=== PATIENT | female | born 1980 | race Caucasian/White ===

== ENCOUNTER 2016-05-06 06:31 | Emergency (ER) | payer MEDICAID ==
[~2016-05-06] VITALS: Ht 160 cm; Wt 100.3 kg
[~2016-05-06 06:31] MED LIST: BUSP30TA PO; CETI10CH CHEW; CLON0.1T PO; DELS30LI3 PO; FLUT1SPR20; GABA600T PO; IBUP800T23 PO; MELA1TAB18 PO; OXYC1TAB36 PO; ROBA750T PO; TRAZ100T4 PO; flonase
[2016-05-06 06:36] VITALS: BP 124/81; PULSE 86; RESP 20; TEMP 98.7; O2SAT 97
[2016-05-06] MEDS ORDERED: LORA-361 PO ×4 (07:44→07:50)
[2016-05-06] MEDS ORDERED: ZITHTAB PO (07:44)
--- NOTE | 2016-05-06 07:45 | PD ---
HPI Chief Complaint: Cold / Flu Symptoms Time Seen by Provider: 07:38 Travel History International Travel<30 days: No Contact w/Intl Traveler<30days: No Traveled to known affect area: No History of Present Illness HPI 35-year-old female with history of smoking, presents to the ER with 3 weeks history of intermittent coughing, cold symptoms, sore throat, itchy eyes, and nausea. She denies any vomiting, abdominal pain, fevers, or any other symptoms. She states that she feels like the symptoms just won't go away. Modifying Factors: None Associated Signs & Symptoms: Cough, cold symptoms, sore throat, itchy eyes, nausea for 3 weeks Risk Factors: Smoking PFSH Past Medical History Arthritis: Yes (ARMS BILATERAL) Asthma: Yes Autoimmune Disease: No Blood Disorders: No Bipolar Disorder: Yes Anxiety: Yes Depression: Yes Heart Rhythm Problems: No Cancer: No Cardiovascular Problems: No High Cholesterol: No Chemotherapy: No Chest Pain: No Congestive Heart Failure: No COPD: No Cerebrovascular Accident: No Diabetes: No Diminished Hearing: No Endocrine: No Gastrointestinal Disorders: Yes GERD: No Glaucoma: No Genitourinary: Yes Headaches: Yes (REGULARLY) Hepatitis: No Hiatal Hernia: No Heparin Induced Thrombocytopen: No Hypertension: No Immune Disorder: No Implanted Vascular Access Dvce: No Kidney Stones: Yes Musculoskeletal: No Neurologic: No Psychiatric: Yes (BIPOLOR ) Reproductive: Yes (OVARIAN CYSTS ) Respiratory: Yes Resp. Syncytial Virus (RSV): No Integumentary: Yes (SHINGLES/TUMOR EYE) Immunizations Current: Yes Migraines: Yes Myocardial Infarction: No Pneumonia: Yes Radiation Therapy: No Renal Failure: No Schizophrenia: Yes (PARNOID PER HX- ABLE TO IGNORE VOICES) Seizures: No Shingles: Yes Sickle Cell Disease: No Sleep Apnea: No Thyroid Disease: No Ulcer: No ?: Not LMP: 03/29/16 : 5 Para: 2 Miscarriage: 1 : 2 Ovarian Cysts: Yes Dilation and Curettage (D&C): Yes Tubal Ligation: Yes Past Surgical History Abdominal Surgery: No AICD: No Arteriovenous Shunt: No Cardiac Surgery: No Section: Yes (x 1) Cholecystectomy: Yes Ear Surgery: No Endocrine Surgery: No Eye Surgery: No Genitourinary Surgery: No Gynecologic Surgery: Yes Insulin Pump: No Joint Replacement: No Neurologic Surgery: No Oral Surgery: No Pacemaker: No Thoracic Surgery: No Other Surgery: Yes (LAPAROSCOPY) Social History Alcohol Use: Yes (rare) Tobacco Use: Yes (1 -2 CIGS A DAY) Substance Use: No (denies) Allergies-Medications (Allergen,Severity, Reaction): Coded Allergies: No Known Allergies (Verified , 05/06/16) Reported Meds & Prescriptions Reported Meds & Active Scripts Active Robaxin (Methocarbamol) 750 Mg Tab 750 Mg PO QID Clonidine (Clonidine HCl) 0.1 Mg Tab 0.1 Mg PO BID Reported Melatonin 10 Mg Tab 15 Mg PO HS PRN Eq Allergy Relief (Fluticasone Propionate (Nasal)) 50 Mcg/Act Spr 1 [place] NA DAILY Trazodone (Trazodone HCl) 100 Mg Tab 300 Mg PO HS Buspirone (Buspirone HCl) 30 Mg Tab 30 Mg PO QID Gabapentin 600 Mg Tab 600 Mg PO TID Review of Systems Except as stated in HPI: all other systems reviewed are Neg Physical Exam Narrative GENERAL: Well-nourished, well-developed young white female patient in no acute distress. SKIN: Warm and dry. HEAD: Normocephalic. EYES: No scleral icterus. No injection or drainage. ENT: Mucosa pink and moist. No erythema or exudates. No uvular edema. No uvular , palatal, or tonsillar deviation. Airway patent. NECK: Supple, trachea midline. CARDIOVASCULAR: Regular rate and rhythm without murmurs, gallops, or rubs. RESPIRATORY: Breath sounds equal bilaterally. No accessory muscle use. GASTROINTESTINAL: Abdomen soft, non-tender, nondistended. MUSCULOSKELETAL: No cyanosis, or edema. BACK: Nontender without obvious deformity. No CVA tenderness. Data Data Last Documented VS Vital Signs Date Time Temp Pulse Resp B/P Pulse Ox O2 Delivery O2 Flow Rate FiO2 05/06/16 07:12 86 18 97 Room Air 05/06/16 06:36 98.7 124/81 MDM Medical Decision Making Medical Screen Exam Complete: Yes Emergency Medical Condition: Yes Medical Record Reviewed: Yes Differential Diagnosis Bronchitis versus URI versus pneumonia versus seasonal allergies Narrative Course Patient has no current wheezing, and oxygen saturations are normal in the ER. At this point, she may have some underlying bronchitis especially with her history of smoking. My plan would be to treat her for bronchitis and have her follow up with primary care doctor. Return for any worsening in symptoms or new issues as needed. The plan has been discussed with her and she is agreeable. Diagnosis Primary Impression: Bronchitis Med/Other Pt SpecificInfo: Prescription(s) given Scripts Loratadine (Claritin)10 Mg Tab10 Mg PO DAILY #20 TAB Ref 0 Prov:Nirali Blake MD 05/06/16 Azithromycin (Zithromax Z-Medardo)250 Mg [id number] Mg PO DIRECTED #1 DSPK Ref 0 500 MG (2 tabs) day 1, then 1 tab days 2-5. Prov:Nirali Blake MD 05/06/16 Disposition: DISCHARGE HOME Condition: Stable Nirali Blake MD May 06, 2016 07:45
[2016-09-22] MEDS ORDERED: FLUT50SP EACH NARE (09:30)
[2016-09-22] MEDS ORDERED: TRAZ50TA12 PO (09:30)
[2016-09-22] MEDS ORDERED: ROBA750T PO (09:43)
[2016-09-22] MEDS ORDERED: HYDR50CA PO (09:43)
[2016-09-22] MEDS ORDERED: kratom PO (09:43)
[2016-09-22] MEDS ORDERED: CLON0.1T PO (09:59)
[2016-09-22] MEDS ORDERED: CYCL1TAB29 PO (09:59)
== END 2016-05-06 07:55 | disposition home or self-care (01) ==
LOC: PHED 06:31
DX: J40 Bronchitis, not specified as acute or chronic (principal); Z87.442 Personal history of urinary calculi
CPT/HCPCS: 99283

== ENCOUNTER 2016-06-04 06:33 | Emergency (ER) | payer MEDICAID ==
[~2016-06-04] VITALS: Ht 157.5 cm; Wt 97.8 kg
[~2016-06-04 06:33] MED LIST changes: -CETI10CH CHEW; -DELS30LI3 PO; -IBUP800T23 PO; +LORA-361 PO; -OXYC1TAB36 PO; +ZITHTAB PO; -flonase
[2016-06-04 06:39] VITALS: BP 143/97; PULSE 98; RESP 24; TEMP 98.2; O2SAT 97
[2016-06-04 06:58] VITALS: BP 141/94; PULSE 91; RESP 16; TEMP 98.6; O2SAT 98
[2016-06-04] MEDS ORDERED: PHEN37.5 PO (07:06)
[2016-06-04] MEDS ORDERED: BACT800T5 PO (07:56)
--- NOTE | 2016-06-04 08:01 | PD ---
HPI Chief Complaint: Skin Problem Time Seen by Provider: 07:42 Travel History International Travel<30 days: No Contact w/Intl Traveler<30days: No Traveled to known affect area: No History of Present Illness HPI The patient was seen and examined in the presence of the nurse. This patient complains of an infection near her Right ankle. One week ago she cut herself shaving. There is some redness and she reports some pus drainage. Denies fever. Symptoms severity is mild PFSH Past Medical History Arthritis: Yes (ARMS BILATERAL) Asthma: Yes Autoimmune Disease: No Blood Disorders: No Bipolar Disorder: Yes Anxiety: Yes Depression: Yes Heart Rhythm Problems: No Cancer: No Cardiovascular Problems: No High Cholesterol: No Chemotherapy: No Chest Pain: No Congestive Heart Failure: No COPD: No Cerebrovascular Accident: No Diabetes: No Diminished Hearing: No Endocrine: No Gastrointestinal Disorders: Yes GERD: No Glaucoma: No Genitourinary: Yes Headaches: Yes (REGULARLY) Hepatitis: No Hiatal Hernia: No Heparin Induced Thrombocytopen: No Hypertension: No Immune Disorder: No Implanted Vascular Access Dvce: No Kidney Stones: Yes Musculoskeletal: No Neurologic: No Psychiatric: Yes (BIPOLOR ) Reproductive: Yes (OVARIAN CYSTS ) Respiratory: Yes Resp. Syncytial Virus (RSV): No Integumentary: Yes (SHINGLES/TUMOR EYE) Immunizations Current: Yes Migraines: Yes Myocardial Infarction: No Pneumonia: Yes Radiation Therapy: No Renal Failure: No Schizophrenia: Yes (PARNOID PER HX- ABLE TO IGNORE VOICES) Seizures: No Shingles: Yes Sickle Cell Disease: No Sleep Apnea: No Thyroid Disease: No Ulcer: No ?: Not LMP: tubal : 5 Para: 2 Miscarriage: 1 : 2 Ovarian Cysts: Yes Dilation and Curettage (D&C): Yes Tubal Ligation: Yes Past Surgical History Abdominal Surgery: No AICD: No Arteriovenous Shunt: No Cardiac Surgery: No Section: Yes (x 1) Cholecystectomy: Yes Ear Surgery: No Endocrine Surgery: No Eye Surgery: No Genitourinary Surgery: No Gynecologic Surgery: Yes Insulin Pump: No Joint Replacement: No Neurologic Surgery: No Oral Surgery: No Pacemaker: No Thoracic Surgery: No Other Surgery: Yes (LAPAROSCOPY) Social History Alcohol Use: Yes (rare) Tobacco Use: Yes (1 -2 CIGS A DAY) Substance Use: No (denies) Allergies-Medications (Allergen,Severity, Reaction): Coded Allergies: No Known Allergies (Verified , 06/04/16) Reported Meds & Prescriptions Reported Meds & Active Scripts Active Bactrim DS (Sulfamethoxazole-Trimethoprim) 800-160 Mg Tab 1 Tab PO BID Clonidine (Clonidine HCl) 0.1 Mg Tab 0.1 Mg PO BID Reported Phentermine (Phentermine HCl) 37.5 Mg Tab 1 Tab PO DAILY Melatonin 10 Mg Tab 15 Mg PO HS PRN Eq Allergy Relief (Fluticasone Propionate (Nasal)) 50 Mcg/Act Spr 1 [place] NA DAILY Trazodone (Trazodone HCl) 100 Mg Tab 300 Mg PO HS Buspirone (Buspirone HCl) 30 Mg Tab 30 Mg PO QID Gabapentin 600 Mg Tab 600 Mg PO TID Review of Systems General / Constitutional: No: Fever HENT: No: Headaches Cardiovascular: No: Chest Pain or Discomfort Physical Exam Narrative Psych: Normal mood and affect. Normal insight and judgment. SKIN: Inspection shows no rash or ulcers. Palpation shows no induration or nodules. Right ankle: The posterior region above the Achilles tendon has some shallow wounding. There is minimal erythema around it. No fluctuance or drainage. Data Data Last Documented VS Vital Signs Date Time Temp Pulse Resp B/P Pulse Ox O2 Delivery O2 Flow Rate FiO2 06/04/16 06:58 98.6 91 16 141/94 98 MDM Medical Decision Making Medical Screen Exam Complete: Yes Emergency Medical Condition: Yes Medical Record Reviewed: Yes Differential Diagnosis Cellulitis, wound infection, abrasion Narrative Course I have reviewed the patient's electronic medical record. There is some minor findings in the posterior ankle region. I wrote Bactrim DS for 1 week Wound care discussed Diagnosis Primary Impression: Wound infection Additional Instructions: The patient was advised to follow up with their physician and return if they worsen. Med/Other Pt SpecificInfo: Prescription(s) given Scripts Sulfamethoxazole-Trimethoprim (Bactrim DS)800-160 Mg Tab1 Tab PO BID #14 TAB Ref 0 Prov:Nasir Marsh MD 06/04/16 Disposition: 01 DISCHARGE HOME Condition: Stable Nasir Marsh MD Jun 04, 2016 08:01
[2016-09-22] MEDS ORDERED: TRAZ50TA12 PO (09:30)
[2016-09-22] MEDS ORDERED: FLUT50SP EACH NARE (09:30)
[2016-09-22] MEDS ORDERED: ROBA750T PO (09:43)
[2016-09-22] MEDS ORDERED: kratom PO (09:43)
[2016-09-22] MEDS ORDERED: HYDR50CA PO (09:43)
[2016-09-22] MEDS ORDERED: CYCL1TAB29 PO (09:59)
[2016-09-22] MEDS ORDERED: CLON0.1T PO (09:59)
== END 2016-06-04 08:25 | disposition home or self-care (01) ==
LOC: PHED 06:33
DX: L08.9 Local infection of the skin and subcutaneous tissue, unspecified (principal)
CPT/HCPCS: 99282

== ENCOUNTER 2016-06-17 10:11 | Emergency (ER) | payer MEDICAID ==
[~2016-06-17] VITALS: Ht 160 cm; Wt 97.1 kg
[~2016-06-17 10:11] MED LIST changes: +BACT800T5 PO; -LORA-361 PO; +PHEN37.5 PO; -ROBA750T PO; -ZITHTAB PO
[2016-06-17 10:25] VITALS: BP 155/106; PULSE 85; RESP 18; TEMP 99.2; O2SAT 99
--- NOTE | 2016-06-17 11:05 | PD ---
HPI Chief Complaint: Cold / Flu Symptoms Time Seen by Provider: 10:34 Travel History International Travel<30 days: No Contact w/Intl Traveler<30days: No Traveled to known affect area: No History of Present Illness HPI 35-year-old woman flulike symptoms. Symptoms been ongoing for past several days. She needs a note for work. History Past Medical History Medical History: Denies Significant Hx Tetanus Vaccination: < 5 Years Influenza Vaccination: No : 5 Para: 2 Dilation and Curettage (D&C): Yes Social History Alcohol Use: Yes (rare) Tobacco Use: Yes (1 -2 CIGS A DAY) Allergies-Medications (Allergen,Severity, Reaction): Coded Allergies: No Known Allergies (Verified , 06/17/16) Reported Meds & Prescriptions Reported Meds & Active Scripts Active Bactrim DS (Sulfamethoxazole-Trimethoprim) 800-160 Mg Tab 1 Tab PO BID Clonidine (Clonidine HCl) 0.1 Mg Tab 0.1 Mg PO BID Reported Phentermine (Phentermine HCl) 37.5 Mg Tab 1 Tab PO DAILY Melatonin 10 Mg Tab 15 Mg PO HS PRN Eq Allergy Relief (Fluticasone Propionate (Nasal)) 50 Mcg/Act Spr 1 [place] NA DAILY Trazodone (Trazodone HCl) 100 Mg Tab 300 Mg PO HS Buspirone (Buspirone HCl) 30 Mg Tab 30 Mg PO QID Gabapentin 600 Mg Tab 600 Mg PO TID Review of Systems Except as stated in HPI: all other systems reviewed are Neg Physical Exam Narrative GENERAL: Well-appearing 35-year-old woman, no acute distress. SKIN: Warm and dry. HEAD: Atraumatic. Normocephalic. EYES: Pupils equal and round. No scleral icterus. No injection or drainage. ENT: No nasal bleeding or discharge. Mucous membranes pink and moist. TMs normal. Throat is normal. NECK: Trachea midline. No JVD. No adenopathy. CARDIOVASCULAR: Regular rate and rhythm. No murmur appreciated. RESPIRATORY: No accessory muscle use. Clear to auscultation. Breath sounds equal bilaterally. GASTROINTESTINAL: Abdomen soft, non-tender, nondistended. Hepatic and splenic margins not palpable. MUSCULOSKELETAL: No obvious deformities. Data Data Last Documented VS Vital Signs Date Time Temp Pulse Resp B/P Pulse Ox O2 Delivery O2 Flow Rate FiO2 06/17/16 10:25 99.2 85 18 155/106 99 [facility] Medical Decision Making Medical Screen Exam Complete: Yes Emergency Medical Condition: Yes Differential Diagnosis URI, flulike symptoms, bronchitis, pneumonia, other Narrative Course Medical decision-making 35-year-old with cough cold symptoms. Some nausea but no vomiting. She looks overall well. She's had fever up to 101. Here because she can't stay home from work without a work note. Diagnosis Primary Impression: Influenza-like illness Patient Instructions: General Instructions Departure Forms: Tests/Procedures, Work Release Enter return to work date: Jun 19, 2016 Special Instructions: Can return to work after no fever for 24 hours. Additional Instructions: Take acetaminophen or ibuprofen as a for fever or body aches. You can return to work after you have had no fever for 24 hours. Drink plenty of fluids to stay well-hydrated. Follow-up with your primary doctor if you are not completely well in 7-10 days. Return to the emergency department for any worsening chest pain, trouble breathing, or any other new or worsening symptoms. Disposition: 01 DISCHARGE HOME Condition: Stable Prince Aguilar MD Jun 17, 2016 11:05
[2016-09-22] MEDS ORDERED: FLUT50SP EACH NARE (09:30)
[2016-09-22] MEDS ORDERED: TRAZ50TA12 PO (09:30)
[2016-09-22] MEDS ORDERED: kratom PO (09:43)
[2016-09-22] MEDS ORDERED: HYDR50CA PO (09:43)
[2016-09-22] MEDS ORDERED: ROBA750T PO (09:43)
[2016-09-22] MEDS ORDERED: CYCL1TAB29 PO (09:59)
[2016-09-22] MEDS ORDERED: CLON0.1T PO (09:59)
== END 2016-06-17 11:16 | disposition home or self-care (01) ==
LOC: PHED 10:11
DX: R68.89 Other general symptoms and signs (principal); Z72.0 Tobacco use
CPT/HCPCS: 99283

== ENCOUNTER 2016-07-06 08:28 | Emergency (ER) | payer MEDICAID ==
[~2016-07-06] VITALS: Ht 160 cm; Wt 99.6 kg
[2016-07-06 08:33] VITALS: BP 155/94; PULSE 85; RESP 20; TEMP 98.5; O2SAT 97
[2016-07-06] MEDS: SODIUM CHLORID 0.9% 500 ML INJ 500 ML IV ONE ×2 (08:45→09:31)
[2016-07-06] MEDS ORDERED: SODIUM CHLORIDE 0.9% FLUSH 5 ML FLUSH IVF PRN (08:45)
[2016-07-06 08:49] VITALS: BP 162/99; PULSE 89; RESP 18; O2SAT 99
--- NOTE | 2016-07-06 08:54 | PD ---
HPI Chief Complaint: Chest Pain Time Seen by Provider: 08:41 Travel History International Travel<30 days: No Contact w/Intl Traveler<30days: No Traveled to known affect area: No History of Present Illness HPI Patient is a 35-year-old female with history of hypertension, hyperlipidemia currently taking clonidine, who presents to emergency room with complaints of chest pain. Patient reports that chest pain began last night while she was laying down, patient reports that chest pain felt a sharp and stabbing sensation to her left chest, patient reports that chest pain only last for a few seconds at a time and resolves on it's own. Reports that she has noticed chest pain intermittently for minutes at a time. Reports no diaphoresis with chest pain. Reports that she did feel short of breath when she had her symptoms. Denies history of chest pain in the past. Patient reports that she has a strong family history of coronary artery disease, patient herself has never had an MT or ACS in the past. Patient currently with no chest pain at this time. Patient denies any recent travels or trauma, reports that she is not taking control pills at this time. Patient reports that she was on phentermine for weight loss control and took herself off of it on Tuesday as she was afraid to have a "heart attack on the medication." PFSH Past Medical History Arthritis: Yes (ARMS BILATERAL) Asthma: Yes Autoimmune Disease: No Blood Disorders: No Bipolar Disorder: Yes Anxiety: Yes Depression: Yes Heart Rhythm Problems: No Cancer: No Cardiovascular Problems: No High Cholesterol: No Chemotherapy: No Chest Pain: No Congestive Heart Failure: No COPD: No Cerebrovascular Accident: No Diabetes: No Diminished Hearing: No Deep Vein Thrombosis: Yes (arm) Endocrine: No Gastrointestinal Disorders: Yes GERD: No Glaucoma: No Genitourinary: Yes Headaches: Yes (REGULARLY) Hepatitis: No Hiatal Hernia: No Heparin Induced Thrombocytopen: No Hypertension: Yes Immune Disorder: No Implanted Vascular Access Dvce: No Kidney Stones: Yes Musculoskeletal: No Neurologic: No Psychiatric: Yes (BIPOLOR ) Reproductive: Yes (OVARIAN CYSTS ) Respiratory: Yes Resp. Syncytial Virus (RSV): No Integumentary: Yes (SHINGLES/TUMOR EYE) Immunizations Current: Yes Migraines: Yes Myocardial Infarction: No Pneumonia: Yes Radiation Therapy: No Renal Failure: No Schizophrenia: Yes (PARNOID PER HX- ABLE TO IGNORE VOICES) Seizures: No Shingles: Yes Sickle Cell Disease: No Sleep Apnea: No Thyroid Disease: No Ulcer: No Influenza Vaccination: No ?: Not LMP: 06/2016 : 5 Para: 2 Miscarriage: 1 : 2 Ovarian Cysts: Yes Dilation and Curettage (D&C): Yes Tubal Ligation: Yes Past Surgical History Abdominal Surgery: No AICD: No Arteriovenous Shunt: No Cardiac Surgery: No Section: Yes (x 1) Cholecystectomy: Yes Ear Surgery: No Endocrine Surgery: No Eye Surgery: No Genitourinary Surgery: No Gynecologic Surgery: Yes Insulin Pump: No Joint Replacement: No Neurologic Surgery: No Oral Surgery: No Pacemaker: No Thoracic Surgery: No Other Surgery: Yes (LAPAROSCOPY) Family History Family Myocardial Infarction: Yes (patient's father had an MT at age 41) Social History Alcohol Use: Yes (rare) Tobacco Use: Yes (1 -2 CIGS A DAY) Substance Use: No (denies) Allergies-Medications (Allergen,Severity, Reaction): Coded Allergies: No Known Allergies (Verified , 07/06/16) Reported Meds & Prescriptions Reported Meds & Active Scripts Active Ibuprofen 800 Mg Tab 800 Mg PO Q8H PRN Clonidine (Clonidine HCl) 0.1 Mg Tab 0.1 Mg PO BID Reported Melatonin 10 Mg Tab 15 Mg PO HS PRN Eq Allergy Relief (Fluticasone Propionate (Nasal)) 50 Mcg/Act Spr 1 [place] NA DAILY Trazodone (Trazodone HCl) 100 Mg Tab 300 Mg PO HS Buspirone (Buspirone HCl) 30 Mg Tab 30 Mg PO TID Gabapentin 600 Mg Tab 600 Mg PO TID Review of Systems General / Constitutional: No: Fever Eyes: No: Visual changes HENT: No: Headaches Cardiovascular: Positive: Chest Pain or Discomfort Respiratory: Positive: Shortness of Breath Gastrointestinal: No: Abdominal Pain Genitourinary: No: Dysuria Musculoskeletal: No: Pain Skin: No Rash Neurologic: No: Weakness Psychiatric: No: Depression Endocrine: No: Polydipsia Hematologic/Lymphatic: No: Easy Bruising Physical Exam Narrative GENERAL: No acute distress, nontoxic SKIN: Warm and dry. HEAD: Atraumatic. Normocephalic. EYES: Pupils equal and round. No scleral icterus. No injection or drainage. ENT: No nasal bleeding or discharge. Mucous membranes pink and moist. NECK: Trachea midline. No JVD. CARDIOVASCULAR: Regular rate and rhythm. No murmur appreciated. RESPIRATORY: No accessory muscle use. Clear to auscultation. Breath sounds equal bilaterally. GASTROINTESTINAL: Abdomen soft, non-tender, nondistended. Hepatic and splenic margins not palpable. MUSCULOSKELETAL: No obvious deformities. No clubbing. No cyanosis. No edema. NEUROLOGICAL: Awake and alert. No obvious cranial nerve deficits. Motor grossly within normal limits. Normal speech. PSYCHIATRIC: Appropriate mood and affect; insight and judgment normal. Data Data Last Documented VS Vital Signs Date Time Temp Pulse Resp B/P Pulse Ox O2 Delivery O2 Flow Rate FiO2 07/06/16 10:31 79 07/06/16 10:29 18 144/96 99 Room Air 07/06/16 08:33 98.5 Orders Electrocardiogram (07/06/16 08:45) Ckmb (Isoenzyme) Profile (07/06/16 08:45) Complete Blood Count With Diff (07/06/16 08:45) Comprehensive Metabolic Panel (07/06/16 08:45) D-Dimer (07/06/16 08:45) Prothrombin Time / Inr (Pt) (07/06/16 08:45) Act Partial Throm Time (Ptt) (07/06/16 08:45) Troponin I (07/06/16 08:45) Chest, Single Ap (07/06/16 08:45) Ecg Monitoring (07/06/16 08:45) Iv Access Insert/Monitor (07/06/16 08:45) Oximetry (07/06/16 08:45) Sodium Chloride 0.9% Flush (Ns Flush) (07/06/16 08:45) Sodium Chlorid 0.9% 500 Ml Inj (Ns 500 M (07/06/16 08:45) Ed Urine Pregnancytest Poc (07/06/16 08:45) Thyroid Stimulating Hormone (07/06/16 09:15) Drug Screen, Random Urine (07/06/16 09:41) CKMB (07/06/16 09:15) CKMB% (07/06/16 09:15) Ketorolac Inj (Toradol Inj) (07/06/16 10:00) Ketorolac Inj (Toradol Inj) (07/06/16 10:30) Electrocardiogram (07/06/16 ) Labs Laboratory Tests Test 07/06/16 07/06/16 09:15 09:40 White Blood Count 5.8 TH/MM3 Red Blood Count 4.37 MIL/MM3 Hemoglobin 13.5 GM/DL Hematocrit 39.1 % Mean Corpuscular Volume 89.6 FL Mean Corpuscular Hemoglobin 30.8 PG Mean Corpuscular Hemoglobin 34.4 % Concent Red Cell Distribution Width 11.8 % Platelet Count 354 TH/MM3 Mean Platelet Volume 7.6 FL Neutrophils (%) (Auto) 48.7 % Lymphocytes (%) (Auto) 32.2 % Monocytes (%) (Auto) 10.4 % Eosinophils (%) (Auto) 7.5 % Basophils (%) (Auto) 1.2 % Neutrophils # (Auto) 2.8 TH/MM3 Lymphocytes # (Auto) 1.9 TH/MM3 Monocytes # (Auto) 0.6 TH/MM3 Eosinophils # (Auto) 0.4 TH/MM3 Basophils # (Auto) 0.1 TH/MM3 CBC Comment DIFF FINAL Differential Comment Prothrombin Time 10.6 SEC Prothromb Time International 1.0 RATIO Ratio Activated Partial 21.9 SEC Thromboplast Time D-Dimer Quantitative (PE/DVT) 0.34 MG/L FEU Sodium Level 140 MEQ/L Potassium Level 4.5 MEQ/L Chloride Level 106 MEQ/L Carbon Dioxide Level 24.9 MEQ/L Anion Gap 9 MEQ/L Blood Urea Nitrogen 15 MG/DL Creatinine 0.90 MG/DL Estimat Glomerular Filtration 71 ML/MIN Rate Random Glucose 107 MG/DL Calcium Level 8.6 MG/DL Total Bilirubin 0.5 MG/DL Aspartate Amino Transf 38 U/L (AST/SGOT) Alanine Aminotransferase 33 U/L (ALT/SGPT) Alkaline Phosphatase 50 U/L Total Creatine Kinase 256 U/L Creatine Kinase MB 2.3 NG/ML Creatine Kinase MB % 0.9 % Troponin I LESS THAN 0.02 NG/ML Total Protein 7.1 GM/DL Albumin 3.5 GM/DL Thyroid Stimulating Hormone 0.536 uIU/ML 3rd Gen Urine Opiates Screen NEG Urine Barbiturates Screen NEG Urine Amphetamines Screen NEG Urine Benzodiazepines Screen NEG Urine Cocaine Screen NEG Urine Cannabinoids Screen NEG MDM Medical Decision Making Medical Screen Exam Complete: Yes Emergency Medical Condition: Yes Interpretation(s) EKG at 0845: Normal sinus rhythm at 87 bpm, QT/QTc 382/429, no acute ST changes , t wave inversion V1-V2 EKG at 1043: NSR at 72bpm, qt/qtc: 418/439, t wave inversion V1-V2, no change from initial ekg Vital Signs Date Time Temp Pulse Resp B/P Pulse Ox O2 Delivery O2 Flow Rate FiO2 07/06/16 08:33 98.5 85 20 155/94 97 Laboratory Tests Test 07/06/16 07/06/16 09:15 09:40 White Blood Count 5.8 TH/MM3 (4.0-11.0) Red Blood Count 4.37 MIL/MM3 (4.00-5.30) Hemoglobin 13.5 GM/DL (11.6-15.3) Hematocrit 39.1 % (35.0-46.0) Mean Corpuscular Volume 89.6 FL (80.0-100.0) Mean Corpuscular Hemoglobin 30.8 PG (27.0-34.0) Mean Corpuscular Hemoglobin 34.4 % Concent (32.0-36.0) Red Cell Distribution Width 11.8 % (11.6-17.2) Platelet Count 354 TH/MM3 (150-450) Mean Platelet Volume 7.6 FL (7.0-11.0) Neutrophils (%) (Auto) 48.7 % (16.0-70.0) Lymphocytes (%) (Auto) 32.2 % (9.0-44.0) Monocytes (%) (Auto) 10.4 % (0.0-8.0) Eosinophils (%) (Auto) 7.5 % (0.0-4.0) Basophils (%) (Auto) 1.2 % (0.0-2.0) Neutrophils # (Auto) 2.8 TH/MM3 (1.8-7.7) Lymphocytes # (Auto) 1.9 TH/MM3 (1.0-4.8) Monocytes # (Auto) 0.6 TH/MM3 (0-0.9) Eosinophils # (Auto) 0.4 TH/MM3 (0-0.4) Basophils # (Auto) 0.1 TH/MM3 (0-0.2) CBC Comment DIFF FINAL Differential Comment Prothrombin Time 10.6 SEC (9.8-11.6) Prothromb Time International 1.0 RATIO Ratio Activated Partial 21.9 SEC Thromboplast Time (24.3-30.1) D-Dimer Quantitative (PE/DVT) 0.34 MG/L FEU (0.00-0.50) Sodium Level 140 MEQ/L (136-145) Potassium Level 4.5 MEQ/L (3.5-5.1) Chloride Level 106 MEQ/L (98-107) Carbon Dioxide Level 24.9 MEQ/L (21.0-32.0) Anion Gap 9 MEQ/L (5-15) Blood Urea Nitrogen 15 MG/DL (7-18) Creatinine 0.90 MG/DL (0.50-1.00) Estimat Glomerular Filtration 71 ML/MIN (>89) Rate Random Glucose 107 MG/DL (74-106) Calcium Level 8.6 MG/DL (8.5-10.1) Total Bilirubin 0.5 MG/DL (0.2-1.0) Aspartate Amino Transf 38 U/L (15-37) (AST/SGOT) Alanine Aminotransferase 33 U/L (10-53) (ALT/SGPT) Alkaline Phosphatase 50 U/L (45-117) Total Creatine Kinase 256 U/L (26-192) Creatine Kinase MB 2.3 NG/ML (0.5-3.6) Creatine Kinase MB % 0.9 % (0.0-4.0) Troponin I LESS THAN 0.02 NG/ML (0.02-0.05) Total Protein 7.1 GM/DL (6.4-8.2) Albumin 3.5 GM/DL (3.4-5.0) Thyroid Stimulating Hormone 0.536 uIU/ML 3rd Gen (0.358-3.740) Urine Opiates Screen NEG (NEG) Urine Barbiturates Screen NEG (NEG) Urine Amphetamines Screen NEG (NEG) Urine Benzodiazepines Screen NEG (NEG) Urine Cocaine Screen NEG (NEG) Urine Cannabinoids Screen NEG (NEG) Last Impressions Chest X-Ray 07/06/16 2742 Signed Impressions: Service Date/Time: Wednesday, July 06, 2016 09:07 - CONCLUSION: No acute infiltrate. Shaka Alexandre MD Differential Diagnosis ACS, PE, pneumothorax, arrhythmia, hyperthyroidism, electrolyte abnormality Narrative Course Patient is a 35-year-old female with history of hypertension, hyperlipidemia who presents to emergency room with complaints of chest pain. Patient reports that she has been having sharp and stabbing left sided chest pain since last night, patient reports that symptoms are intermittent in nature and lasts a few minutes at a time. Patient reports no recent travels or trips, patient reports she does take clonidine for hypertension. Patient is on diet control for her hyperlipidemia. EKG obtained. Patient was placed on a case monitor upon arrival to the emergency room. Labs including x-ray of the chest ordered. Last Impressions Chest X-Ray 07/06/16 0845 Signed Impressions: Service Date/Time: Wednesday, July 06, 2016 09:07 - CONCLUSION: No acute infiltrate. Shaka Alexandre MD wbc 5.8 Hemoglobin 13.5 Hematocrit 39.1 Platelets 354 Sodium 140 Chloride 106 Potassium 4.5 BUN 15 Creatinine 0.9 Carbon dioxide 24.9 TSH 0.536 Troponin less than 0.02 UDS negative Patient reports that she is feeling much better at this time. Patient reports relief after Toradol was given to her. Repeat EKG is benign and similar to initial EKG. Patient with most likely atypical chest pain, costochondritis. All studies with patient in detail, discussed need to follow-up with java j2ee architect as outpatient given her strong family history of coronary disease. Signs and symptoms of when to return to the emergency room was reviewed with patient in detail. Reviewed smoking cessation with patient in detail. Diagnosis Primary Impression: Chest pain Qualified Code: R07.9 - Chest pain, unspecified type Additional Impressions: Costochondritis Smoking addiction Referrals: Shabbir Villegas MD Patient Instructions: General Instructions Additional Instructions: Please follow-up with a java j2ee architect Please call your primary care doctor for earliest follow-up Return to the emergency room as needed or if symptoms return Please drink plenty of fluids Please stop smoking Disposition: 01 DISCHARGE HOME Condition: Stable Sharlene Kinney DO Jul 06, 2016 08:54
--- NOTE | 2016-07-06 09:37 | RADHPO ---
EXAM DATE/TIME: 07/06/2016 09:07 [facility] COMPARISON: CHEST PA & LAT, January 03, 2015, 10:58. INDICATIONS : Patient states chest tightness. MEDICAL HISTORY : Hypertension. Asthma SURGICAL HISTORY : None. ENCOUNTER: Initial ACUITY: 1 day PAIN SCORE: 4/10 LOCATION: Left chest FINDINGS: A single view of the chest demonstrates the lungs to be symmetrically aerated without evidence of mas s, infiltrate or effusion. The cardiomediastinal contours are unremarkable. Side plate and osseous s crews secure an old right clavicular diaphyseal fracture. CONCLUSION: No acute infiltrate. Shaka Alexandre MD on July 06, 2016 at 9:34 Board Certified Radiologist. This report was verified electronically.
[2016-07-06 09:49] LABS: APTT (PATIENT) 21.9 SEC (24.3-30.1); AUTOMATED NEUTROPHIL # 2.8 TH/MM3 (1.8-7.7); BASOPHIL # 0.1 TH/MM3 (0-0.2); BASOPHIL % 1.2 % (0.0-2.0); EOSINOPHIL # 0.4 TH/MM3 (0-0.4); EOSINOPHIL % 7.5 % (0.0-4.0); HEMATOCRIT 39.1 % (35.0-46.0); LYMPH % 32.2 % (9.0-44.0); LYMPHOCYTE # 1.9 TH/MM3 (1.0-4.8); MEAN CELL VOLUME 89.6 FL (80.0-100.0); MEAN CORPUSCULAR HEMOGLOBIN 30.8 PG (27.0-34.0); MEAN CORPUSCULAR HGB CONC 34.4 % (32.0-36.0); MONO % 10.4 % (0.0-8.0); NEUT % 48.7 % (16.0-70.0); PLATELET COUNT 354 TH/MM3 (150-450); PROTHROMBIN TIME - PATIENT 10.6 SEC (9.8-11.6); RED BLOOD COUNT 4.37 MIL/MM3 (4.00-5.30); RED CELL DISTRIBUTION WIDTH 11.8 % (11.6-17.2); WHITE BLOOD COUNT 5.8 TH/MM3 (4.0-11.0)
[2016-07-06 09:52] LABS: BICARBONATE 24.9 MEQ/L (21.0-32.0); HEMO FLAGS DIFF FINAL
[2016-07-06 09:55] LABS: ALT (GPT) 33 U/L (10-53); GLOMERULAR FILTRATION RATE 71 ML/MIN (>89)
[2016-07-06 09:56] LABS: ANION GAP 9 MEQ/L (5-15); AST (GOT) 38 U/L (15-37); CHLORIDE 106 MEQ/L (98-107); POTASSIUM 4.5 MEQ/L (3.5-5.1); SODIUM (NA) 140 MEQ/L (136-145)
[2016-07-06 09:57] LABS: BLOOD UREA NITROGEN 15 MG/DL (7-18); TOTAL BILIRUBIN ADULT 0.5 MG/DL (0.2-1.0)
[2016-07-06 09:58] LABS: ALKALINE PHOSPHATASE 50 U/L (45-117); CREATINE KINASE 256 U/L (26-192)
[2016-07-06] MEDS ORDERED: KETOROLAC TROMETHAMINE 30 MG/ML (IVP) VIAL IV PUSH ONE (10:00)
[2016-07-06 10:09] LABS: CKMB 2.3 NG/ML (0.5-3.6)
[2016-07-06 10:24] LABS: BARBITURATES, URINE NEG (NEG)
[2016-07-06 10:27] LABS: COCAINE, URINE NEG (NEG)
[2016-07-06 10:29] VITALS: BP 144/96; PULSE 80; RESP 18; O2SAT 99
[2016-07-06 10:29] LABS: AMPHETAMINE, URINE NEG (NEG)
[2016-07-06] MEDS ORDERED: KETOROLAC TROMETHAMINE 60 MG/2 ML (IM) VIAL IM ONE (10:30)
[2016-07-06] MEDS ORDERED: IBUP800T23 PO (10:31)
[2016-07-06 11:06] VITALS: BP 110/79
--- NOTE | 2016-07-06 11:16 | EKG ---
Date Performed: 07/06/2016 Time Performed: 08:45:42 PTAGE: 35 years EKG: Sinus rhythm Anteroseptal T wave changes are borderline abnormal Low QRS voltages in precordial leads Borderline ECG PREVIOUS TRACING : 01/03/2015 10.32 DOCTOR: Boby Fountain Interpretating Date/Time 07/06/2016 11:14:31
--- NOTE | 2016-07-07 11:21 | EKG ---
Date Performed: 07/06/2016 Time Performed: 10:43:28 PTAGE: 35 years EKG: Sinus rhythm Anteroseptal T wave changes are nonspecific Low QRS voltages in precordial leads Borderline ECG PREVIOUS TRACING : 07/06/2016 08.45 DOCTOR: Prince Callejas Interpretating Date/Time 07/07/2016 11:19:12
[2016-09-22] MEDS ORDERED: TRAZ50TA12 PO (09:30)
[2016-09-22] MEDS ORDERED: FLUT50SP EACH NARE (09:30)
[2016-09-22] MEDS ORDERED: HYDR50CA PO (09:43)
[2016-09-22] MEDS ORDERED: kratom PO (09:43)
[2016-09-22] MEDS ORDERED: ROBA750T PO (09:43)
[2016-09-22] MEDS ORDERED: CYCL1TAB29 PO (09:59)
[2016-09-22] MEDS ORDERED: CLON0.1T PO (09:59)
== END 2016-07-06 11:07 | disposition home or self-care (01) ==
LOC: PHED 08:28
DX: R07.9 Chest pain, unspecified (principal); E78.5 Hyperlipidemia, unspecified; I10 Essential (primary) hypertension
CPT/HCPCS: 71010; 80053; 80307; 82550; 82552; 84443; 84484; 84703; 85025; 85379; 85610; 85730; 93005; 96372; 99285; J1885; J7040

== ENCOUNTER 2017-04-14 07:49 | Emergency (ER) | payer MEDICAID ==
[~2017-04-14] VITALS: Ht 160 cm; Wt 105.3 kg
[~2017-04-14 07:49] MED LIST changes: -BACT800T5 PO; +CYCL10TA PO; -FLUT1SPR20; +FLUT50SP EACH NARE; +HYDR50CA PO; +IBUP1TAB7 PO; -PHEN37.5 PO; +ROBA750T PO; -TRAZ100T4 PO; +TRAZ50TA12 PO; +kratom PO
[2017-04-14 07:51] VITALS: BP 168/101; PULSE 74; RESP 16; TEMP 98.1; O2SAT 97
[2017-04-14] MEDS ORDERED: SODIUM CHLOR 0.9% 1000 ML INJ 1,000 ML IV SCH (08:15)
[2017-04-14] MEDS ORDERED: ONDANSETRON HCL 4 MG/2 ML VIAL IV PUSH ONE ×2 (08:15→08:30)
--- NOTE | 2017-04-14 08:21 | PD ---
HPI Chief Complaint: GI Complaint Time Seen by Provider: 08:02 Travel History International Travel<30 days: No Contact w/Intl Traveler<30days: No Traveled to known affect area: No History of Present Illness HPI This 36-year-old female says she did not feel well yesterday. She was lethargic and very tired. She slept a lot. Last night she started having diarrhea at about 10 episodes of diarrhea this morning. She feels a bit nauseated but she has not vomited. She has had a tubal ligation in the past. She is on Augmentin foot infection. She woke up this morning and the right arm was painful and swollen. He has a history of blood clot in the right arm. 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 She has had previous blood clot in the arm which was treated with blood thinners for just about a month. She is complaining of generalized malaise. She feels weak and feels like she's blacking in and out though she has not actually lost consciousness PFSH Past Medical History Arthritis: Yes (ARMS BILATERAL) Asthma: Yes Autoimmune Disease: No Blood Disorders: No Bipolar Disorder: Yes Anxiety: Yes Depression: Yes Heart Rhythm Problems: No Cancer: No Cardiovascular Problems: No High Cholesterol: No Chemotherapy: No Chest Pain: No Congestive Heart Failure: No COPD: No Cerebrovascular Accident: No Diabetes: No Diminished Hearing: No Deep Vein Thrombosis: Yes (arm) Endocrine: No Gastrointestinal Disorders: Yes GERD: No Glaucoma: No Genitourinary: Yes Headaches: Yes (REGULARLY) Hepatitis: No Hiatal Hernia: No Heparin Induced Thrombocytopen: No Hypertension: Yes Immune Disorder: No Implanted Vascular Access Dvce: No Kidney Stones: Yes Musculoskeletal: No Neurologic: No Psychiatric: Yes (BIPOLOR ) Reproductive: Yes (OVARIAN CYSTS ) Respiratory: Yes Resp. Syncytial Virus (RSV): No Integumentary: Yes (SHINGLES/TUMOR EYE) Immunizations Current: Yes Migraines: Yes Myocardial Infarction: No Pneumonia: Yes Radiation Therapy: No Renal Failure: No Schizophrenia: Yes (PARNOID PER HX- ABLE TO IGNORE VOICES) Seizures: No Shingles: Yes Sickle Cell Disease: No Sleep Apnea: No Thyroid Disease: No Ulcer: No ?: Not LMP: 2 weeks ago/ tubal ligation : 5 Para: 2 Miscarriage: 1 : 2 Ovarian Cysts: Yes Dilation and Curettage (D&C): Yes Tubal Ligation: Yes Past Surgical History Abdominal Surgery: No AICD: No Arteriovenous Shunt: No Cardiac Surgery: No Section: Yes (x 1) Cholecystectomy: Yes Ear Surgery: No Endocrine Surgery: No Eye Surgery: No Genitourinary Surgery: No Gynecologic Surgery: Yes Insulin Pump: No Joint Replacement: No Neurologic Surgery: No Oral Surgery: No Pacemaker: No Thoracic Surgery: No Other Surgery: Yes (LAPAROSCOPY) Social History Alcohol Use: Yes (rare) Tobacco Use: Yes (1 -2 CIGS A DAY) Substance Use: No (denies) Allergies-Medications (Allergen,Severity, Reaction): Coded Allergies: No Known Allergies (Verified Adverse Reaction, Unknown, 04/14/17) Reported Meds & Prescriptions Reported Meds & Active Scripts Active Clonidine (Clonidine HCl) 0.1 Mg Tab 0.1 Mg PO BID Fluticasone Nasal [place] 50 Mcg/Act Naspr 50 Mcg EACH [place] DAILY 50 mcg/spray Reported Trazodone (Trazodone HCl) 50 Mg Tab 300 Mg PO HS Review of Systems General / Constitutional: No: Fever, Chills Eyes: No: Diploplia HENT: No: Headaches, Vertigo Cardiovascular: No: Chest Pain or Discomfort, Palpitations Respiratory: No: Cough, Shortness of Breath Gastrointestinal: Positive: Nausea, Diarrhea, Abdominal Pain Genitourinary: No: Frequency Musculoskeletal: Positive: Myalgias, Pain Skin: No Rash, No Itching Neurologic: Positive: Weakness, Dizziness, No: Syncope Endocrine: No: Heat Intolerance, Cold Intolerance Hematologic/Lymphatic: No: Easy Bruising Physical Exam Narrative GENERAL: Well-developed female SKIN: Focused skin assessment warm/dry. HEAD: Atraumatic. Normocephalic. EYES: Pupils equal and round. No scleral icterus. No injection or drainage. ENT: No nasal bleeding or discharge. Mucous membranes pink and moist. NECK: Trachea midline. No JVD. CARDIOVASCULAR: Regular rate and rhythm. No murmur appreciated. RESPIRATORY: No accessory muscle use. Clear to auscultation. Breath sounds equal bilaterally. GASTROINTESTINAL: Abdomen soft, there is some mild tenderness greater on the right side, nondistended. Hepatic and splenic margins not palpable. MUSCULOSKELETAL: No obvious deformities. No clubbing. No cyanosis. There is bilateral pedal edema. There is soft tissue swelling involving the right hand and forearm and upper arm. Radial pulse present. NEUROLOGICAL: Awake and alert. No obvious cranial nerve deficits. Motor grossly within normal limits. Normal speech. PSYCHIATRIC: Appropriate mood and affect; insight and judgment normal. Data Data Last Documented VS Vital Signs Date Time Temp Pulse Resp B/P (MAP) Pulse Ox O2 Delivery O2 Flow Rate FiO2 04/14/17 09:48 70 16 126/72 (90) 95 Room Air 04/14/17 07:51 98.1 Orders Orders Complete Blood Count With Diff (04/14/17 08:11) Comprehensive Metabolic Panel (04/14/17 08:11) Urinalysis - C+S If Indicated (04/14/17 08:11) Us Arm Venous Doppler (04/14/17 08:11) Sodium Chlor 0.9% 1000 Ml Inj (Ns 1000 M (04/14/17 08:15) Ondansetron Inj (Zofran Inj) (04/14/17 08:15) Prothrombin Time / Inr (Pt) (04/14/17 08:14) Act Partial Throm Time (Ptt) (04/14/17 08:14) Ondansetron Inj (Zofran Inj) (04/14/17 08:30) Hydromorphone Pf Inj (Dilaudid Pf Inj) (04/14/17 08:30) Loperamide (Imodium) (04/14/17 10:30) Labs Laboratory Tests Test 04/14/17 08:20 04/14/17 08:36 Urine Color YELLOW Urine Turbidity CLEAR Urine pH 7.5 Urine Specific [place] 1.031 Urine Protein NEG mg/dL Urine Glucose (UA) NEG mg/dL Urine Ketones TRACE mg/dL Urine Occult Blood NEG Urine Nitrite NEG Urine Bilirubin NEG Urine Leukocyte Esterase NEG Urine RBC 0-3 /hpf Urine WBC 3-5 /hpf Urine Squamous Epithelial Cells 0-5 /hpf Urine Bacteria FEW /hpf Urine Mucus MANY /lpf Microscopic Urinalysis Comment CULT NOT INDICATED White Blood Count 4.9 TH/MM3 Red Blood Count 4.19 MIL/MM3 Hemoglobin 12.3 GM/DL Hematocrit 37.5 % Mean Corpuscular Volume 89.6 FL Mean Corpuscular Hemoglobin 29.3 PG Mean Corpuscular Hemoglobin Concent 32.7 % Red Cell Distribution Width 12.8 % Platelet Count 348 TH/MM3 Mean Platelet Volume 6.9 FL Neutrophils (%) (Auto) 44.3 % Lymphocytes (%) (Auto) 36.7 % Monocytes (%) (Auto) 11.8 % Eosinophils (%) (Auto) 6.7 % Basophils (%) (Auto) 0.5 % Neutrophils # (Auto) 2.2 TH/MM3 Lymphocytes # (Auto) 1.8 TH/MM3 Monocytes # (Auto) 0.6 TH/MM3 Eosinophils # (Auto) 0.3 TH/MM3 Basophils # (Auto) 0.0 TH/MM3 CBC Comment DIFF FINAL Differential Comment Prothrombin Time 9.9 SEC Prothromb Time International Ratio 1.0 RATIO Activated Partial Thromboplast Time 24.0 SEC Blood Urea Nitrogen 15 MG/DL Creatinine 0.84 MG/DL Random Glucose 97 MG/DL Total Protein 6.8 GM/DL Albumin 3.2 GM/DL Calcium Level 8.5 MG/DL Alkaline Phosphatase 41 U/L Aspartate Amino Transf (AST/SGOT) 37 U/L Alanine Aminotransferase (ALT/SGPT) 44 U/L Total Bilirubin 0.4 MG/DL Sodium Level 141 MEQ/L Potassium Level 3.5 MEQ/L Chloride Level 106 MEQ/L Carbon Dioxide Level 28.9 MEQ/L Anion Gap 6 MEQ/L Estimat Glomerular Filtration Rate 77 ML/MIN MDM Medical Decision Making Medical Screen Exam Complete: Yes Emergency Medical Condition: Yes Medical Record Reviewed: Yes Differential Diagnosis Differential includes enteritis, DVT of the upper extremity Narrative Course Ultrasound of the right upper extremity was done and is negative for clot. Patient kept her arm elevated and the swelling has subsided considerably. She may have some chronic venous insufficiency due to her previous problems. I have recommended she take Imodium for her diarrhea. He is stable for discharge Diagnosis Primary Impression: Enteritis Scripts Hydrocodone-Acetaminophen (Hydrocodone-Acetaminophen) 7.5 Mg-325 Mg Tab 1 TAB PO Q4H Y for PAIN, #12 TAB 0 Refills Prov: Homer Price MD 04/14/17 Disposition: 01 DISCHARGE HOME Condition: Stable Homer Price MD Apr 14, 2017 08:21
[2017-04-14] MEDS ORDERED: HYDROmorphone HCL PF 2 MG/ML VIAL IV PUSH ONE (08:30)
[2017-04-14 08:52] LABS: AUTOMATED NEUTROPHIL # 2.2 TH/MM3 (1.8-7.7); BASOPHIL % 0.5 % (0.0-2.0); EOSINOPHIL # 0.3 TH/MM3 (0-0.4); EOSINOPHIL % 6.7 % (0.0-4.0); HEMATOCRIT 37.5 % (35.0-46.0); HEMOGLOBIN 12.3 GM/DL (11.6-15.3); LYMPH % 36.7 % (9.0-44.0); LYMPHOCYTE # 1.8 TH/MM3 (1.0-4.8); MEAN CELL VOLUME 89.6 FL (80.0-100.0); MEAN CORPUSCULAR HEMOGLOBIN 29.3 PG (27.0-34.0); MEAN CORPUSCULAR HGB CONC 32.7 % (32.0-36.0); MEAN PLATELET VOLUME 6.9 FL (7.0-11.0); MONO % 11.8 % (0.0-8.0); MONOCYTE # 0.6 TH/MM3 (0-0.9); NEUT % 44.3 % (16.0-70.0); PLATELET COUNT 348 TH/MM3 (150-450); RED BLOOD COUNT 4.19 MIL/MM3 (4.00-5.30); RED CELL DISTRIBUTION WIDTH 12.8 % (11.6-17.2); WHITE BLOOD COUNT 4.9 TH/MM3 (4.0-11.0)
[2017-04-14 08:54] LABS: BILIRUBIN, URINE NEG (NEG); BLOOD, URINE NEG (NEG); GLUCOSE,URINE NEG (NEG); KETONE, URINE TRACE mg/dL (NEG); NITRITE,URINE NEG (NEG); PH, URINE 7.5 (5.0-8.5); URINE LEUKOCYTE ESTERASE NEG (NEG)
[2017-04-14 08:55] LABS: URINE COLOR YELLOW (YELLW/STRAW)
[2017-04-14 08:58] LABS: MUCUS URINE MANY /lpf (OCC); RBC, URINE 0-3 /hpf (0-3)
[2017-04-14 08:59] LABS: CHLORIDE 106 MEQ/L (98-107); SODIUM (NA) 141 MEQ/L (136-145)
[2017-04-14 09:00] LABS: BACTERIA, URINE FEW /hpf; SQUAMOUS EPITHELIAL CELL URINE 0-5 /hpf (0-5)
[2017-04-14 09:02] LABS: PROTHROMBIN TIME - PATIENT 9.9 SEC (9.8-11.6)
[2017-04-14 09:03] LABS: ALBUMIN 3.2 GM/DL (3.4-5.0); BICARBONATE 28.9 MEQ/L (21.0-32.0); CALCIUM 8.5 MG/DL (8.5-10.1)
[2017-04-14 09:04] LABS: BLOOD UREA NITROGEN 15 MG/DL (7-18); GLUCOSE,RANDOM 97 MG/DL (74-106)
[2017-04-14 09:06] LABS: ALT (GPT) 44 U/L (10-53); AST (GOT) 37 U/L (15-37)
[2017-04-14 09:07] LABS: CREATININE 0.84 MG/DL (0.50-1.00); GLOMERULAR FILTRATION RATE 77 ML/MIN (>89)
[2017-04-14 09:08] LABS: TOTAL BILIRUBIN ADULT 0.4 MG/DL (0.2-1.0); TOTAL PROTEIN 6.8 GM/DL (6.4-8.2)
[2017-04-14 09:09] LABS: ALKALINE PHOSPHATASE 41 U/L (45-117)
[2017-04-14 09:48] VITALS: BP 126/72; PULSE 70; RESP 16; O2SAT 95
--- NOTE | 2017-04-14 09:58 | RADRPT ---
EXAM DATE/TIME: 04/14/2017 09:02 [facility] COMPARISON: US ARM RIGHT VENOUS DOPPLER, April 29, 2012, 17:45. INDICATIONS : Right arm pain. MEDICAL HISTORY : Deep venous thrombosis. Migraine. Ovarian cysts. Endometriosis. Kidney stones. Asthma. Shingles. SURGICAL HISTORY : Tubal ligation. section. Right shoulder surgery x 2. Laparoscopy. ENCOUNTER: Subsequent ACUITY: 1 day PAIN SCORE: 6/10 LOCATION: Right arm. FINDINGS: There is spontaneous flow documented in the brachial, basilic, cephalic, axillary, and subclavian vei ns. The vessels are compressible and augmentation response is documented. No filling defects are se en. The flow is phasic with respiration. Direction of flow in the jugular vein is caudal. CONCLUSION: No evidence of DVT or SVT. Giancarlo Conde MD on April 14, 2017 at 9:43 Board Certified Radiologist. This report was verified electronically.
[2017-04-14] MEDS ORDERED: HYDR-3580 PO (10:25)
[2017-04-14] MEDS ORDERED: LOPERAMIDE HCL 2 MG CAP PO ONE (10:30)
== END 2017-04-14 10:38 | disposition home or self-care (01) ==
LOC: PHED 07:49
DX: K52.9 Noninfective gastroenteritis and colitis, unspecified (principal); R22.31 Localized swelling, mass and lump, right upper limb; I10 Essential (primary) hypertension; J45.909 Unspecified asthma, uncomplicated; F20.9 Schizophrenia, unspecified; F31.9 Bipolar disorder, unspecified; F17.210 Nicotine dependence, cigarettes, uncomplicated; Z86.718 Personal history of other venous thrombosis and embolism; Z87.442 Personal history of urinary calculi; Z79.899 Other long term (current) drug therapy
CPT/HCPCS: 80053; 81001; 85025; 85610; 85730; 93971; 96361; 96374; 96375; 99285; J1170; J2405; J7030

== ENCOUNTER 2017-05-08 12:12 | Emergency (ER) | payer MEDICAID ==
[~2017-05-08] VITALS: Ht 160 cm; Wt 103.6 kg
[~2017-05-08 12:12] MED LIST changes: -BUSP30TA PO; -CYCL10TA PO; -GABA600T PO; +HYDR-3580 PO; -HYDR50CA PO; -IBUP1TAB7 PO; -MELA1TAB18 PO; -ROBA750T PO; -kratom PO
[2017-05-08 13:03] VITALS: BP 162/83; PULSE 68; RESP 18; TEMP 98.7; O2SAT 98
[2017-05-08] MEDS ORDERED: OSEL75 PO (14:13)
[2017-05-08] MEDS ORDERED: PROMSYP3 PO (14:13)
--- NOTE | 2017-05-08 14:14 | PD ---
HPI Chief Complaint: Cold / Flu Symptoms Time Seen by Provider: 13:43 Travel History International Travel<30 days: No Contact w/Intl Traveler<30days: No Traveled to known affect area: No History of Present Illness HPI 36-year-old female here with fever, body ache and an exposure to flu. Symptom duration one day. Symptom severity is moderate. No aggravating or alleviating factors. PFSH Past Medical History Arthritis: Yes (ARMS BILATERAL) Asthma: Yes Autoimmune Disease: No Blood Disorders: No Bipolar Disorder: Yes Anxiety: Yes Depression: Yes Heart Rhythm Problems: No Cancer: No Cardiovascular Problems: No High Cholesterol: No Chemotherapy: No Chest Pain: No Congestive Heart Failure: No COPD: No Cerebrovascular Accident: No Diabetes: No Diminished Hearing: No Deep Vein Thrombosis: Yes (arm) Endocrine: No Gastrointestinal Disorders: Yes GERD: No Glaucoma: No Genitourinary: Yes Headaches: Yes (REGULARLY) Hepatitis: No Hiatal Hernia: No Heparin Induced Thrombocytopen: No Hypertension: Yes Immune Disorder: No Implanted Vascular Access Dvce: No Kidney Stones: Yes Musculoskeletal: No Neurologic: No Psychiatric: Yes (BIPOLOR ) Reproductive: Yes (OVARIAN CYSTS ) Respiratory: Yes Resp. Syncytial Virus (RSV): No Integumentary: Yes (SHINGLES/TUMOR EYE) Immunizations Current: Yes Migraines: Yes Myocardial Infarction: No Pneumonia: Yes Radiation Therapy: No Renal Failure: No Schizophrenia: Yes (PARNOID PER HX- ABLE TO IGNORE VOICES) Seizures: No Shingles: Yes Sickle Cell Disease: No Sleep Apnea: No Thyroid Disease: No Ulcer: No ?: Not LMP: Tuesday of last week : 5 Para: 2 Miscarriage: 1 : 2 Ovarian Cysts: Yes Dilation and Curettage (D&C): Yes Tubal Ligation: Yes Past Surgical History Abdominal Surgery: No AICD: No Appendectomy: Yes Arteriovenous Shunt: No Cardiac Surgery: No Section: Yes (x 1) Cholecystectomy: Yes Ear Surgery: No Endocrine Surgery: No Eye Surgery: No Genitourinary Surgery: No Gynecologic Surgery: Yes Insulin Pump: No Joint Replacement: No Neurologic Surgery: No Oral Surgery: No Pacemaker: No Thoracic Surgery: No Other Surgery: Yes (LAPAROSCOPY) Social History Alcohol Use: Yes (rare) Tobacco Use: No (FORMER) Substance Use: No (denies) Allergies-Medications (Allergen,Severity, Reaction): Coded Allergies: No Known Allergies (Verified Adverse Reaction, Unknown, 05/08/17) Reported Meds & Prescriptions Reported Meds & Active Scripts Active Clonidine (Clonidine HCl) 0.1 Mg Tab 0.1 Mg PO BID Reported Trazodone (Trazodone HCl) 50 Mg Tab 300 Mg PO HS Review of Systems Except as stated in HPI: all other systems reviewed are Neg General / Constitutional: Positive: Fever Eyes: No: Visual changes HENT: No: Headaches Cardiovascular: No: Chest Pain or Discomfort Respiratory: Positive: Cough Gastrointestinal: No: Abdominal Pain Genitourinary: No: Dysuria Musculoskeletal: Positive: Myalgias Skin: No Rash Physical Exam Narrative GENERAL: Alert and well-appearing 36-year-old female. SKIN: Warm and dry. HEAD: Normocephalic. EYES: No scleral icterus. No injection or drainage. NECK: Supple, trachea midline. No meningismus CARDIOVASCULAR: Regular rate and rhythm without murmurs, gallops, or rubs. RESPIRATORY: Breath sounds equal bilaterally. No accessory muscle use. GASTROINTESTINAL: Abdomen soft, non-tender, nondistended. MUSCULOSKELETAL: No cyanosis, or edema. BACK: Nontender without obvious deformity. No CVA tenderness. Data Data Last Documented VS Vital Signs Date Time Temp Pulse Resp B/P (MAP) Pulse Ox O2 Delivery O2 Flow Rate FiO2 05/08/17 13:03 98.7 68 18 162/83 (109) 98 MDM Medical Decision Making Medical Screen Exam Complete: Yes Emergency Medical Condition: Yes Differential Diagnosis Influenza, bronchitis, pneumonia Narrative Course 36-year-old female here with flulike illness and exposure to the flu. She is well-appearing. Vital signs are stable. Patient be treated for influenza. Diagnosis Primary Impression: Influenza-like illness Referrals: Primary Care Physician Departure Forms: Tests/Procedures, Work Release Enter return to work date: May 11, 2017 Additional Instructions: Tylenol and ibuprofen as needed for fever and pain. Rest and stay well hydrated. Follow-up the primary doctor. Scripts Dextromethorphan-Promethazine Liq (Promethazine-Dextromethorphan Liq) 6.25-15 Mg /5 Ml Syrp 10 ML PO Q6HR Y for COUGH, #120 ML Prov: Ling Ramon [employer] APPRAISER 05/08/17 Oseltamivir (Tamiflu) 75 Mg Cap 75 MG PO BID for Mgmt Viral Infection for 5 Days, #10 CAP 0 Refills Prov: Ling Ramon 05/08/17 Disposition: 01 DISCHARGE HOME Condition: Stable Ling Ramon May 08, 2017 14:14
== END 2017-05-08 14:31 | disposition home or self-care (01) ==
LOC: PHED 12:12 → PHEFT 14:31
DX: J10.89 Influenza due to other identified influenza virus with other manifestations (principal); I10 Essential (primary) hypertension; F20.9 Schizophrenia, unspecified; Z87.442 Personal history of urinary calculi; Z86.718 Personal history of other venous thrombosis and embolism
CPT/HCPCS: 99284

== ENCOUNTER 2017-06-02 10:45 | Emergency (ER) | payer MEDICAID ==
[~2017-06-02] VITALS: Ht 160 cm; Wt 105.0 kg
[~2017-06-02 10:45] MED LIST changes: -FLUT50SP EACH NARE; -HYDR-3580 PO; +OSEL75 PO; +PROMSYP3 PO
[2017-06-02 10:50] VITALS: BP 148/101; PULSE 111; RESP 16; TEMP 98.3; O2SAT 100
--- NOTE | 2017-06-02 11:25 | PD ---
HPI Chief Complaint: Edema Time Seen by Provider: 10:53 Travel History International Travel<30 days: No Contact w/Intl Traveler<30days: No Traveled to known affect area: No History of Present Illness HPI Patient was seen and examined in the presence of a nurse at all times This is a 36-year-old female with a history of hypertension who presents for lower extremity edema. She states that she has had one day of symmetric bilateral lower extremity edema. She has associated tenderness with the swelling in her legs. No overlying erythema. No pain behind her knees. No recent immobility, hormone use. Patient states that she has had this multiple times in the past and was told by her primary physician that she has mild congestive heart failure. She was scheduled to see a media marketing director about 2 weeks ago but did not go to the appointment. Patient states that she had an upper respiratory infection a few weeks ago and continues to have a productive cough from it. No fever, chills. She states that she does not feel unwell from this aspect. She states that she had mild difficulty breathing today, none currently. No chest pain. She states that she has been compliant with her blood pressure medication. Symptoms are mild in severity. Onset gradual. No prior treatment. PFSH Past Medical History Arthritis: Yes (ARMS BILATERAL) Asthma: Yes Autoimmune Disease: No Blood Disorders: No Bipolar Disorder: Yes Anxiety: Yes Depression: Yes Heart Rhythm Problems: No Cancer: No Cardiovascular Problems: No High Cholesterol: No Chemotherapy: No Chest Pain: No Congestive Heart Failure: No COPD: No Cerebrovascular Accident: No Diabetes: No Diminished Hearing: No Deep Vein Thrombosis: Yes (arm) Endocrine: No Gastrointestinal Disorders: Yes GERD: No Glaucoma: No Genitourinary: Yes Headaches: Yes (REGULARLY) Hepatitis: No Hiatal Hernia: No Heparin Induced Thrombocytopen: No Hypertension: Yes Immune Disorder: No Implanted Vascular Access Dvce: No Kidney Stones: Yes Musculoskeletal: No Neurologic: No Psychiatric: Yes Reproductive: Yes (OVARIAN CYSTS ) Respiratory: Yes Resp. Syncytial Virus (RSV): No Immunizations Current: Yes Migraines: Yes Myocardial Infarction: No Pneumonia: Yes Radiation Therapy: No Renal Failure: No Seizures: No Shingles: Yes Sickle Cell Disease: No Sleep Apnea: No Thyroid Disease: No Ulcer: No Influenza Vaccination: No ?: Not LMP: 2/4 : 5 Para: 2 Miscarriage: 1 : 2 Ovarian Cysts: Yes Dilation and Curettage (D&C): Yes Tubal Ligation: Yes Past Surgical History Abdominal Surgery: No AICD: No Appendectomy: Yes Arteriovenous Shunt: No Cardiac Surgery: No Section: Yes (x 1) Cholecystectomy: Yes Ear Surgery: No Endocrine Surgery: No Eye Surgery: No Genitourinary Surgery: No Gynecologic Surgery: Yes Insulin Pump: No Joint Replacement: No Neurologic Surgery: No Oral Surgery: No Pacemaker: No Thoracic Surgery: No Other Surgery: Yes (LAPAROSCOPY) Social History Alcohol Use: Yes (rare) Tobacco Use: Yes Substance Use: No (denies) Allergies-Medications (Allergen,Severity, Reaction): Coded Allergies: No Known Allergies (Verified Adverse Reaction, Unknown, 06/02/17) Reported Meds & Prescriptions Reported Meds & Active Scripts Active Clonidine (Clonidine HCl) 0.1 Mg Tab 0.1 Mg PO BID Reported Trazodone (Trazodone HCl) 50 Mg Tab 300 Mg PO HS Review of Systems Except as stated in HPI: all other systems reviewed are Neg Physical Exam Narrative GENERAL: Alert, well nourished, well appearing patient resting on the bed in no acute distress. Vital Signs reviewed SKIN: Focused skin assessment warm/dry. HEAD: Atraumatic. Normocephalic. EYES: Pupils equal and round. No scleral icterus. No injection or drainage. ENT: No nasal bleeding or discharge. Mucous membranes pink and moist. NECK: Trachea midline. No JVD. Spontaneous, painless full range of motion with no meningismus CARDIOVASCULAR: Regular rate and rhythm. No murmur appreciated. Extremities warm and well perfused with bounding peripheral pulses RESPIRATORY: No accessory muscle use. Clear to auscultation. Breath sounds equal bilaterally. Breathing easily and speaking in full sentences GASTROINTESTINAL: Abdomen soft, non-tender, nondistended. Normal bowel sounds. No rigid, rebound, guarding MUSCULOSKELETAL: No obvious deformities. No clubbing. No cyanosis. Mild symmetric bilateral alert 70 pitting edema to the mid shins. Bounding symmetric DP pulses. No palpable calf cords. Negative Homans sign. Compartments are soft NEUROLOGICAL: Awake and alert. No obvious cranial nerve deficits. Motor grossly within normal limits. Normal speech. Sensation intact. Normal gait Data Data Last Documented VS Vital Signs Date Time Temp Pulse Resp B/P (MAP) Pulse Ox O2 Delivery O2 Flow Rate FiO2 06/02/17 12:10 73 18 151/80 (103) 97 Room Air 06/02/17 10:50 98.3 Orders Orders Electrocardiogram (06/02/17 11:04) B-Type Natriuretic Peptide (06/02/17 11:04) Ckmb (Isoenzyme) Profile (06/02/17 11:04) Complete Blood Count With Diff (06/02/17 11:04) Comprehensive Metabolic Panel (06/02/17 11:04) Magnesium (Mg) (06/02/17 11:04) Prothrombin Time / Inr (Pt) (06/02/17 11:04) Act Partial Throm Time (Ptt) (06/02/17 11:04) Troponin I (06/02/17 11:04) Ecg Monitoring (06/02/17 11:04) Iv Access Insert/Monitor (06/02/17 11:04) Oximetry (06/02/17 11:04) Sodium Chloride 0.9% Flush (Ns Flush) (06/02/17 11:15) Chest, Pa & Lat (06/02/17 11:04) Ketorolac Inj (Toradol Inj) (06/02/17 12:15) CKMB (06/02/17 12:00) CKMB% (06/02/17 12:00) Furosemide Inj (Lasix Inj) (06/02/17 13:00) Labs Laboratory Tests Test 06/02/17 12:00 White Blood Count 4.3 TH/MM3 Red Blood Count 3.96 MIL/MM3 Hemoglobin 12.0 GM/DL Hematocrit 35.3 % Mean Corpuscular Volume 89.0 FL Mean Corpuscular Hemoglobin 30.2 PG Mean Corpuscular Hemoglobin Concent 33.9 % Red Cell Distribution Width 11.8 % Platelet Count 299 TH/MM3 Mean Platelet Volume 7.4 FL Neutrophils (%) (Auto) 41.6 % Lymphocytes (%) (Auto) 40.4 % Monocytes (%) (Auto) 10.0 % Eosinophils (%) (Auto) 6.9 % Basophils (%) (Auto) 1.1 % Neutrophils # (Auto) 1.9 TH/MM3 Lymphocytes # (Auto) 1.7 TH/MM3 Monocytes # (Auto) 0.4 TH/MM3 Eosinophils # (Auto) 0.3 TH/MM3 Basophils # (Auto) 0.0 TH/MM3 CBC Comment DIFF FINAL Differential Comment Prothrombin Time 10.0 SEC Prothromb Time International Ratio 1.0 RATIO Activated Partial Thromboplast Time 24.0 SEC Blood Urea Nitrogen 11 MG/DL Creatinine 0.70 MG/DL Random Glucose 99 MG/DL Total Protein 6.7 GM/DL Albumin 3.3 GM/DL Calcium Level 7.9 MG/DL Magnesium Level 2.0 MG/DL Alkaline Phosphatase 40 U/L Aspartate Amino Transf (AST/SGOT) 29 U/L Alanine Aminotransferase (ALT/SGPT) 28 U/L Total Bilirubin 0.3 MG/DL Sodium Level 141 MEQ/L Potassium Level 3.9 MEQ/L Chloride Level 110 MEQ/L Carbon Dioxide Level 26.7 MEQ/L Anion Gap 4 MEQ/L Estimat Glomerular Filtration Rate 95 ML/MIN Total Creatine Kinase 327 U/L Creatine Kinase MB 1.8 NG/ML Creatine Kinase MB % 0.6 % Troponin I LESS THAN 0.02 NG/ML B-Type Natriuretic Peptide 45 PG/ML MDM Medical Decision Making Medical Screen Exam Complete: Yes Emergency Medical Condition: Yes Medical Record Reviewed: Yes Interpretation(s) EKG shows sinus rhythm with a rate of 83. No acute ST elevation. Similar to prior EKG Last 24 hours Impressions Chest X-Ray 06/02/17 1104 Signed Impressions: Service Date/Time: May 11:07 - CONCLUSION: No acute disease. Giancarlo Conde MD Laboratory Tests Test 06/02/17 12:00 White Blood Count 4.3 TH/MM3 Red Blood Count 3.96 MIL/MM3 Hemoglobin 12.0 GM/DL Hematocrit 35.3 % Mean Corpuscular Volume 89.0 FL Mean Corpuscular Hemoglobin 30.2 PG Mean Corpuscular Hemoglobin Concent 33.9 % Red Cell Distribution Width 11.8 % Platelet Count 299 TH/MM3 Mean Platelet Volume 7.4 FL Neutrophils (%) (Auto) 41.6 % Lymphocytes (%) (Auto) 40.4 % Monocytes (%) (Auto) 10.0 % Eosinophils (%) (Auto) 6.9 % Basophils (%) (Auto) 1.1 % Neutrophils # (Auto) 1.9 TH/MM3 Lymphocytes # (Auto) 1.7 TH/MM3 Monocytes # (Auto) 0.4 TH/MM3 Eosinophils # (Auto) 0.3 TH/MM3 Basophils # (Auto) 0.0 TH/MM3 CBC Comment DIFF FINAL Differential Comment Prothrombin Time 10.0 SEC Prothromb Time International Ratio 1.0 RATIO Activated Partial Thromboplast Time 24.0 SEC Blood Urea Nitrogen 11 MG/DL Creatinine 0.70 MG/DL Random Glucose 99 MG/DL Total Protein 6.7 GM/DL Albumin 3.3 GM/DL Calcium Level 7.9 MG/DL Magnesium Level 2.0 MG/DL Alkaline Phosphatase 40 U/L Aspartate Amino Transf (AST/SGOT) 29 U/L Alanine Aminotransferase (ALT/SGPT) 28 U/L Total Bilirubin 0.3 MG/DL Sodium Level 141 MEQ/L Potassium Level 3.9 MEQ/L Chloride Level 110 MEQ/L Carbon Dioxide Level 26.7 MEQ/L Anion Gap 4 MEQ/L Estimat Glomerular Filtration Rate 95 ML/MIN Total Creatine Kinase 327 U/L Creatine Kinase MB 1.8 NG/ML Creatine Kinase MB % 0.6 % Troponin I LESS THAN 0.02 NG/ML B-Type Natriuretic Peptide 45 PG/ML Differential Diagnosis Dependent edema, lymphedema, hypoalbuminemia, CHF, fluid overload, bilateral DVT unlikely Narrative Course IV access was established. Labs, imaging were performed. Patient has no fluid overload on chest x-ray. She states that she has had similar symptoms multiple times in the past. She has symmetric bilateral lower extremity edema. I do not feel that venous Dopplers are necessary at this time. Patient was given a single dose of Lasix. I counseled her regarding the results of the workup. Plan for discharge with supportive care, leg elevation, compression stockings, reduce salt intake and close outpatient follow-up with primary physician and media marketing director. Patient understands the importance of close outpatient follow- up. She understands she may require further testing and treatment as an outpatient. She understands it is her responsibility to establish and complete this follow-up. She understands strict return indications. She is comfortable with this plan and eager to go home. Diagnosis Primary Impression: Bilateral leg edema Referrals: Service Parts Driver 1 week Primary Care Physician 1 day Patient Instructions: General Instructions, Leg Edema (ED) Additional Instructions: Keep legs elevated when at rest. Use compression stockings. Eat a low-salt diet. Follow-up with primary physician within 1-4 days. Follow-up with media marketing director closely. You may require further testing and treatment as an outpatient. Return with worsening symptoms. Med/Other Pt SpecificInfo: No Change to Meds Disposition: 01 DISCHARGE HOME Condition: Stable Ary Aceves MD Jun 02, 2017 11:25
--- NOTE | 2017-06-02 11:26 | RADRPT ---
EXAM DATE/TIME: 06/02/2017 11:07 [facility] COMPARISON: CHEST PA & LAT, January 03, 2015, 10:58. INDICATIONS : Short of breath for 2 days. Lower and upper extrimity swelling since this morning. MEDICAL HISTORY : Hypertension. Deep venous thrombosis. Migraine. Ovarian cysts. Endometriosis. Kidney stones. As thma. Shingles SURGICAL HISTORY : Tubal ligation. section. Right shoulder surgery x 2. ENCOUNTER: Initial ACUITY: 2 days PAIN SCORE: 0/10 LOCATION: Bilateral chest FINDINGS: PA and lateral views of the chest demonstrate the lungs to be symmetrically aerated without evidence of mass, infiltrate or effusion. The cardiomediastinal contours are unremarkable. The right clavicl e has undergone prior ORIF with an extramedullary plate. Osseous structures are intact. CONCLUSION: No acute disease. Giancarlo Conde MD on June 02, 2017 at 11:24 Board Certified Radiologist. This report was verified electronically.
[2017-06-02 12:10] VITALS: BP 151/80; PULSE 73; RESP 18; O2SAT 97
[2017-06-02 12:12] LABS: AUTOMATED NEUTROPHIL # 1.9 TH/MM3 (1.8-7.7); BASOPHIL % 1.1 % (0.0-2.0); EOSINOPHIL # 0.3 TH/MM3 (0-0.4); EOSINOPHIL % 6.9 % (0.0-4.0); HEMATOCRIT 35.3 % (35.0-46.0); LYMPH % 40.4 % (9.0-44.0); LYMPHOCYTE # 1.7 TH/MM3 (1.0-4.8); MEAN CORPUSCULAR HEMOGLOBIN 30.2 PG (27.0-34.0); MEAN CORPUSCULAR HGB CONC 33.9 % (32.0-36.0); MEAN PLATELET VOLUME 7.4 FL (7.0-11.0); MONOCYTE # 0.4 TH/MM3 (0-0.9); NEUT % 41.6 % (16.0-70.0); PLATELET COUNT 299 TH/MM3 (150-450); RED BLOOD COUNT 3.96 MIL/MM3 (4.00-5.30); RED CELL DISTRIBUTION WIDTH 11.8 % (11.6-17.2); WHITE BLOOD COUNT 4.3 TH/MM3 (4.0-11.0)
[2017-06-02] MEDS ORDERED: KETOROLAC TROMETHAMINE 30 MG/ML (IVP) VIAL IV PUSH ONE (12:15)
[2017-06-02 12:20] LABS: CHLORIDE 110 MEQ/L (98-107); SODIUM (NA) 141 MEQ/L (136-145)
[2017-06-02] MEDS: SODIUM CHLORIDE 0.9% FLUSH 10 ML FLUSH IVF PRN ×2 (12:23→13:10)
[2017-06-02 12:25] LABS: ALBUMIN 3.3 GM/DL (3.4-5.0); BICARBONATE 26.7 MEQ/L (21.0-32.0); BLOOD UREA NITROGEN 11 MG/DL (7-18); CALCIUM 7.9 MG/DL (8.5-10.1); GLUCOSE,RANDOM 99 MG/DL (74-106)
[2017-06-02 12:28] LABS: ALT (GPT) 28 U/L (10-53); AST (GOT) 29 U/L (15-37); GLOMERULAR FILTRATION RATE 95 ML/MIN (>89)
[2017-06-02 12:30] LABS: TOTAL BILIRUBIN ADULT 0.3 MG/DL (0.2-1.0); TOTAL PROTEIN 6.7 GM/DL (6.4-8.2)
[2017-06-02 12:31] LABS: ALKALINE PHOSPHATASE 40 U/L (45-117)
[2017-06-02 12:34] LABS: TROPONIN I LESS THAN 0.02 NG/ML (0.02-0.05)
[2017-06-02] MEDS ORDERED: FUROSEMIDE 20 MG/2 ML VIAL IV PUSH ONE (13:00)
[2017-06-02 13:34] VITALS: BP 122/86
--- NOTE | 2017-06-02 14:42 | EKG ---
Date Performed: 06/02/2017 Time Performed: 11:05:12 PTAGE: 36 years EKG: Sinus rhythm LOW QRS VOLTAGE IN PRECORDIAL LEADS INCOMPLETE RIGHT BUNDLE BRANCH BLOCK BORDERLINE ECG PREVIOUS TRACING : 07/06/2016 10.43 Since the prior tracing, there has been no significant christina DOCTOR: Derick Lynch Interpretating Date/Time 06/02/2017 14:36:20
== END 2017-06-02 13:36 | disposition home or self-care (01) ==
LOC: PHED 10:45
DX: R60.0 Localized edema (principal); I10 Essential (primary) hypertension; J45.909 Unspecified asthma, uncomplicated; F31.9 Bipolar disorder, unspecified; F41.9 Anxiety disorder, unspecified; R94.31 Abnormal electrocardiogram [ECG] [EKG]; Z72.0 Tobacco use; Z86.718 Personal history of other venous thrombosis and embolism; Z87.442 Personal history of urinary calculi; Z79.899 Other long term (current) drug therapy
CPT/HCPCS: 71046; 80053; 82550; 82552; 83735; 83880; 84484; 85025; 85610; 85730; 93005; 96374; 96375; 99285; J1885; J1940

== ENCOUNTER 2017-06-06 07:42 | Emergency (ER) | payer MEDICAID ==
[~2017-06-06] VITALS: Ht 160 cm; Wt 102.0 kg
[~2017-06-06 07:42] MED LIST changes: -OSEL75 PO; -PROMSYP3 PO
[2017-06-06 07:55] VITALS: BP 155/90; PULSE 90; RESP 16; TEMP 98.7; O2SAT 97
[2017-06-06] MEDS ORDERED: TRAZ50TA12 PO (08:07)
--- NOTE | 2017-06-06 08:37 | PD ---
HPI Chief Complaint: Numbness/Tingling Time Seen by Provider: 08:24 Travel History International Travel<30 days: No Contact w/Intl Traveler<30days: No Traveled to known affect area: No History of Present Illness HPI This 36-year-old female is complaining of edema in both legs. Her right leg is painful. She has had edema in the past. She was seen here on the 15th or edema. Negative chest x-ray and lab work. She's been taking some ibuprofen. The right leg is hurting and hurts her to stand on it. She works at [employer] and is generally on her feet every 8 hours a day. She has noted some swelling also in her right hand. She has had this in the past. She has had surgery on her shoulder. 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 She says that she had a blood clot 2013 about 3 months . She has not had chest pain. She occasionally gets short of breath PFSH Past Medical History Arthritis: Yes (ARMS BILATERAL) Asthma: Yes Autoimmune Disease: No Blood Disorders: No Bipolar Disorder: Yes Anxiety: Yes Depression: Yes Heart Rhythm Problems: No Cancer: No Cardiovascular Problems: No High Cholesterol: No Chemotherapy: No Chest Pain: No Congestive Heart Failure: No COPD: No Cerebrovascular Accident: No Diabetes: No Diminished Hearing: No Deep Vein Thrombosis: Yes (arm) Endocrine: No Gastrointestinal Disorders: Yes GERD: No Glaucoma: No Genitourinary: Yes Headaches: Yes Hepatitis: No Hiatal Hernia: No Heparin Induced Thrombocytopen: No Hypertension: Yes Immune Disorder: No Implanted Vascular Access Dvce: No Kidney Stones: Yes Musculoskeletal: No Neurologic: No Psychiatric: Yes Reproductive: Yes (OVARIAN CYSTS ) Respiratory: Yes Resp. Syncytial Virus (RSV): No Integumentary: Yes (SHINGLES/TUMOR EYE) Immunizations Current: Yes Migraines: Yes Myocardial Infarction: No Pneumonia: Yes Radiation Therapy: No Renal Failure: No Schizophrenia: Yes (Paranoid ) Seizures: No Shingles: Yes Sickle Cell Disease: No Sleep Apnea: No Thyroid Disease: No Ulcer: No Tetanus Vaccination: < 5 Years Influenza Vaccination: No ?: Not LMP: 05/31/2017 : 5 Para: 2 Miscarriage: 1 : 2 Ovarian Cysts: Yes Dilation and Curettage (D&C): Yes Tubal Ligation: Yes Past Surgical History Abdominal Surgery: No AICD: No Appendectomy: Yes Arteriovenous Shunt: No Cardiac Surgery: No Section: Yes (X's 1) Cholecystectomy: Yes Ear Surgery: No Endocrine Surgery: No Eye Surgery: No Genitourinary Surgery: No Gynecologic Surgery: Yes Insulin Pump: No Joint Replacement: No Neurologic Surgery: No Oral Surgery: No Pacemaker: No Thoracic Surgery: No Other Surgery: Yes (LAPAROSCOPY) Social History Alcohol Use: Yes (Rare) Tobacco Use: No (Just quit again) Substance Use: No Allergies-Medications (Allergen,Severity, Reaction): Coded Allergies: No Known Allergies (Verified Adverse Reaction, Unknown, 06/06/17) Reported Meds & Prescriptions Reported Meds & Active Scripts Active Clonidine (Clonidine HCl) 0.1 Mg Tab 0.1 Mg PO BID Reported Trazodone (Trazodone HCl) 50 Mg Tab 50 Mg PO BID Trazodone (Trazodone HCl) 50 Mg Tab 300 Mg PO HS Review of Systems General / Constitutional: No: Fever, Chills Eyes: No: Diploplia, Blurred Vision HENT: Positive: Headaches Cardiovascular: No: Chest Pain or Discomfort, Palpitations Respiratory: Positive: Shortness of Breath, No: Hemoptysis, Pleuritic Pain Gastrointestinal: No: Vomiting, Diarrhea Genitourinary: No: Urgency Musculoskeletal: Positive: Myalgias, Arthralgias, Edema Skin: No Rash, No Itching Neurologic: No: Dizziness, Syncope Endocrine: No: Heat Intolerance, Cold Intolerance Hematologic/Lymphatic: No: Easy Bruising Physical Exam Narrative GENERAL: Well-developed female SKIN: Focused skin assessment warm/dry. HEAD: Atraumatic. Normocephalic. EYES: Pupils equal and round. No scleral icterus. No injection or drainage. ENT: No nasal bleeding or discharge. Mucous membranes pink and moist. NECK: Trachea midline. No JVD. CARDIOVASCULAR: Regular rate and rhythm. No murmur appreciated. RESPIRATORY: No accessory muscle use. Clear to auscultation. Breath sounds equal bilaterally. GASTROINTESTINAL: Abdomen soft, non-tender, nondistended. Hepatic and splenic margins not palpable. MUSCULOSKELETAL: No obvious deformities. No clubbing. No cyanosis. There is bilateral pedal edema. There is tenderness of the right calf. Homans sign is positive on the right NEUROLOGICAL: Awake and alert. No obvious cranial nerve deficits. Motor grossly within normal limits. Normal speech. PSYCHIATRIC: Appropriate mood and affect; insight and judgment normal. Data Data Last Documented VS Vital Signs Date Time Temp Pulse Resp B/P (MAP) Pulse Ox O2 Delivery O2 Flow Rate FiO2 06/06/17 09:35 76 18 133/77 (95) 98 Room Air 06/06/17 07:55 98.7 Orders Orders Us Leg Venous Doppler (06/06/17 08:34) Complete Blood Count With Diff (06/06/17 08:34) Basic Metabolic Panel (Bmp) (06/06/17 08:34) Acetamin-Hydrocod 325-5 Mg ([place] 5-325 (06/06/17 09:45) Labs Laboratory Tests Test 06/06/17 08:45 White Blood Count 4.6 TH/MM3 Red Blood Count 4.35 MIL/MM3 Hemoglobin 13.1 GM/DL Hematocrit 39.0 % Mean Corpuscular Volume 89.8 FL Mean Corpuscular Hemoglobin 30.0 PG Mean Corpuscular Hemoglobin Concent 33.5 % Red Cell Distribution Width 11.8 % Platelet Count 321 TH/MM3 Mean Platelet Volume 7.1 FL Neutrophils (%) (Auto) 48.8 % Lymphocytes (%) (Auto) 33.9 % Monocytes (%) (Auto) 9.7 % Eosinophils (%) (Auto) 6.9 % Basophils (%) (Auto) 0.7 % Neutrophils # (Auto) 2.3 TH/MM3 Lymphocytes # (Auto) 1.6 TH/MM3 Monocytes # (Auto) 0.4 TH/MM3 Eosinophils # (Auto) 0.3 TH/MM3 Basophils # (Auto) 0.0 TH/MM3 CBC Comment DIFF FINAL Differential Comment Blood Urea Nitrogen 11 MG/DL Creatinine 0.73 MG/DL Random Glucose 103 MG/DL Calcium Level 8.6 MG/DL Sodium Level 139 MEQ/L Potassium Level 3.9 MEQ/L Chloride Level 107 MEQ/L Carbon Dioxide Level 25.6 MEQ/L Anion Gap 6 MEQ/L Estimat Glomerular Filtration Rate 90 ML/MIN [facility] Medical Decision Making Medical Screen Exam Complete: Yes Emergency Medical Condition: Yes Medical Record Reviewed: Yes Differential Diagnosis Differential includes DVT, peripheral edema Narrative Course Lab work is unremarkable. Ultrasound is negative for DVT. She has been taking ibuprofen which may be aggravating her edema. He'll prescribe a few days and Ultram and recommend off work 2 days with elevation Diagnosis Primary Impression: Peripheral edema Departure Forms: Tests/Procedures, Work Release Enter return to work date: Jun 09, 2017 Scripts Tramadol (Ultram) 50 Mg Tab 50 MG PO Q6H Y for PAIN, #15 TAB 0 Refills Prov: Homer Price MD 06/06/17 Disposition: 01 DISCHARGE HOME Condition: Stable Homer Price MD Jun 06, 2017 08:37
[2017-06-06 08:53] LABS: AUTOMATED NEUTROPHIL # 2.3 TH/MM3 (1.8-7.7); BASOPHIL % 0.7 % (0.0-2.0); EOSINOPHIL # 0.3 TH/MM3 (0-0.4); EOSINOPHIL % 6.9 % (0.0-4.0); HEMOGLOBIN 13.1 GM/DL (11.6-15.3); LYMPH % 33.9 % (9.0-44.0); LYMPHOCYTE # 1.6 TH/MM3 (1.0-4.8); MEAN CELL VOLUME 89.8 FL (80.0-100.0); MEAN CORPUSCULAR HGB CONC 33.5 % (32.0-36.0); MEAN PLATELET VOLUME 7.1 FL (7.0-11.0); MONO % 9.7 % (0.0-8.0); MONOCYTE # 0.4 TH/MM3 (0-0.9); NEUT % 48.8 % (16.0-70.0); PLATELET COUNT 321 TH/MM3 (150-450); RED BLOOD COUNT 4.35 MIL/MM3 (4.00-5.30); RED CELL DISTRIBUTION WIDTH 11.8 % (11.6-17.2); WHITE BLOOD COUNT 4.6 TH/MM3 (4.0-11.0)
[2017-06-06 09:09] LABS: CALCIUM 8.6 MG/DL (8.5-10.1)
[2017-06-06 09:10] LABS: BICARBONATE 25.6 MEQ/L (21.0-32.0)
[2017-06-06 09:13] LABS: CREATININE 0.73 MG/DL (0.50-1.00)
[2017-06-06 09:35] VITALS: BP 133/77; PULSE 76; RESP 18; O2SAT 98
[2017-06-06] MEDS ORDERED: ACETAMINOPHEN/HYDROcodone 325 MG/5 MG TAB PO ONE (09:45)
--- NOTE | 2017-06-06 11:28 | RADRPT ---
EXAM DATE/TIME: 06/06/2017 10:49 [facility] COMPARISON: US ARM RIGHT VENOUS DOPPLER, April 14, 2017, 9:02. INDICATIONS : Right leg swelling. MEDICAL HISTORY : Arthritis. Renal calculi. Osteoarthritis. Right eye retina damage. Migraines. Right sided sciatica . DVT. Asthma. Pneumonia. Ovarian cysts. Endometrosis. HTN. Shingles. PTSD. Schizophrenia. Bipolar di sorder. Anxiety. Tobacco use. SURGICAL HISTORY : Appendectomy. Cholecystectomy. Tubal ligation. D&C. section. Two right shoulder surgeries. Right clavicle surgery x2. Laparoscopy. Blood transfusions. ENCOUNTER: Initial ACUITY: 1 day PAIN SCORE: 5/10 LOCATION: Right leg. TECHNIQUE: Venous ultrasound of the leg was performed from the inguinal ligament to the proximal calf. Real-jovany e, color Doppler and spectral tracing, compression and augmentation techniques were used. FINDINGS: There is normal compressibility of the deep venous system from the inguinal region to the proximal ca lf. No echogenic clot is seen in the lumen of the common femoral, femoral, popliteal, and posterior tibial veins. There is a normal response of the venous system to proximal and distal augmentation an d respiration. CONCLUSION: 1. No DVT identified. Abdi Bui MD on June 06, 2017 at 11:25 Board Certified Radiologist. This report was verified electronically.
[2017-06-06] MEDS ORDERED: TRAM50 PO (11:34)
[2017-06-06 11:50] VITALS: BP 138/87; PULSE 83; RESP 18; O2SAT 98
== END 2017-06-06 11:55 | disposition home or self-care (01) ==
LOC: PHED 07:42
DX: R60.0 Localized edema (principal); I10 Essential (primary) hypertension; M19.90 Unspecified osteoarthritis, unspecified site; J45.909 Unspecified asthma, uncomplicated; F31.9 Bipolar disorder, unspecified; F41.9 Anxiety disorder, unspecified; F20.9 Schizophrenia, unspecified; Z86.718 Personal history of other venous thrombosis and embolism; Z87.891 Personal history of nicotine dependence
CPT/HCPCS: 80048; 85025; 93971; 99284